=== PATIENT | female | born 1955 | race Caucasian/White ===

== ENCOUNTER → 2018-10-01 09:45 | Outpatient (CLI) | payer OTHER ==
[2015-04-28 11:50] VITALS: BMI 25.0
[~2018-10-01 09:45] MED LIST: AMBIEN10 MG PO; ATIVAN0.5 MG PO; HYDROCODONE-APA1 TAB PO; MOBIC7.5 MG PO; MULTIPLE VITAMI1 TA1 PO; PEPCID20 MG PO; PREMPRO PO; PRILOSEC20 MG PO; VITAMIN D PO
== END | disposition home or self-care (01) ==
LOC: D.MAMMO 09:45
PROVIDERS: ATTEND Emergency Medicine
DX: Z12.31 Encounter for screening mammogram for malignant neoplasm of breast (principal)

== ENCOUNTER → 2020-01-08 22:05 | Outpatient (CLI) | payer OTHER ==
[2015-04-28 11:50] VITALS: BMI 25.0
== END | disposition home or self-care (01) ==
LOC: D.MAMMO 14:30
PROVIDERS: ATTEND Emergency Medicine
DX: Z12.31 Encounter for screening mammogram for malignant neoplasm of breast (principal)